=== PATIENT | female | born 1985 | race Caucasian/White ===

== ENCOUNTER → 2016-09-12 | Outpatient (CLI) | payer OTHER ==
[~2016-09-12] MED LIST: CLC100 PO; FOLI1TAB7 PO; INSHNI SQ; INSU100I SQ; LBT100; MTR600X PO; OXYC-57 PO; PRENTAB26 PO; insulin SQ
[2016-09-16 09:58] LABS: AFP CONCENTRATION 21.9 NG/ML; AFP MULTIPLE OF MEDIAN 0.88; AFPTS GESTATIONAL AGE 17.6 WEEKS; AFPTS INSULIN DEP DIABETIC? YES; AFPTS MATERNAL WT 327 LBS; ALPHA-FETOPROTEIN RACE CAUCASIAN=W; ESTRIOL MULTIPLE OF MEDIAN 0.66; HISTORY OF NTD NO; INHIBIN A 74 PG/ML; INHIBIN A MOM 0.58; REPEAT SAMPLE? NO; hCG MULTIPLE OF MEDIAN 1.27
== END | disposition home or self-care (01) ==
LOC: C.LAB1850 10:11 → MERGE 10:11
PROVIDERS: ATTEND Obstetrics & Gynecology
DX: O09.93 Supervision of high risk pregnancy, unspecified, third trimester (principal)

== ENCOUNTER → 2016-12-04 | Outpatient (CLI) | payer OTHER ==
[2016-12-04 10:42] LABS: HEMATOCRIT 30.3 % (37-47)
[2016-12-04 11:44] LABS: URINE APPEARANCE CLEAR (CLEAR); URINE BILIRUBIN NEG (NEG); URINE COLOR DK YELLOW; URINE EPITHELIAL CELL AUTO >30 /lpf (0-5); URINE NITRITE NEG (NEG); URINE SPECIFIC GRAVITY 1.023 (1.000-1.030); UROBILINOGEN NEG (NEG)
[2016-12-04 11:51] LABS: MANUAL MICROSCOPIC REQUIRED? NO; REVIEW REQ? NO
== END | disposition home or self-care (01) ==
LOC: MERGE 09:42 → C.LAB1850 09:42
PROVIDERS: ATTEND Obstetrics & Gynecology
DX: O24.410 Gestational diabetes mellitus in pregnancy, diet controlled (principal)

== ENCOUNTER → 2017-01-23 | Outpatient (CLI) | payer OTHER | END | disposition home or self-care (01) | LOC: C.LABSPEC 14:04 → MERGE 14:04 | PROVIDERS: ATTEND Obstetrics & Gynecology | DX: O24.414 Gestational diabetes mellitus in pregnancy, insulin controlled (principal); Z3A.00 Weeks of gestation of pregnancy not specified ==

== ENCOUNTER → 2017-02-07 | Outpatient (CLI) | payer OTHER ==
[2017-02-07 10:38] LABS: PATIENT HEIGHT 172.7 cm
[2017-02-07 12:34] LABS: HEMATOCRIT 33.3 % (37-47); MEAN CELL VOLUME 80.8 fL (80-100); MEAN CORPUSCULAR HEMOGLOBIN 26.2 pg (25-34); MEAN CORPUSCULAR HGB CONC 32.4 g/dl (32-36); MEAN PLATELET VOLUME 11.1 fL (7.4-10.4); PLATELET COUNT 159 K/uL (130-400); RED BLOOD COUNT 4.12 M/uL (4.2-5.4); WHITE BLOOD COUNT 11.36 K/uL (4.8-10.8)
[2017-02-07 13:01] LABS: ALKALINE PHOSPHATASE 116 U/L (45-117); ALT/SGPT 13 U/L (12-78); AST/SGOT 13 U/L (15-37); URIC ACID 4.5 mg/dl (2.6-7.2)
[2017-02-07 13:02] LABS: URINE TOTAL PROTEIN 15.8 mg/dl (0-11.9)
[2017-02-07 13:22] LABS: CREATININE 0.4 mg/dl (0.6-1.2); URINE TOTAL PROTEIN CALC 197.5 mg/24 hr (0-149.1)
== END | disposition home or self-care (01) ==
LOC: C.LAB 10:29
PROVIDERS: ATTEND Obstetrics & Gynecology
DX: O16.3 Unspecified maternal hypertension, third trimester (principal); Z3A.00 Weeks of gestation of pregnancy not specified

== ENCOUNTER 2017-02-13 06:50 | Inpatient (IN) | payer OTHER ==
[2017-02-12 10:53] VITALS: BMI 54.0
--- NOTE | 2017-02-12 11:22 | PAT Medication Instructions ---
Service Date Feb 12, 2017. Current Home Medication List Folic Acid (Folvite), 1 TAB PO QAM Insulin Human NPH (Humulin N), 15 UNITS SQ HS Insulin Lispro (Human) (Humalog), 15 UNITS SQ TIDM Labetalol HCl (Labetalol HCl), BID Multivit/Min/Iron/Fol Ac/Pren ( Vitamin), 1 TAB PO QAM Medication Instructions For Your Scheduled Surgery - Hold the following medications the morning of surgery: Multivit/Min/Iron/Fol Ac/Pren ( Vitamin), 1 TAB PO QAM Folic Acid (Folvite), 1 TAB PO QAM Insulin Lispro (Human) (Humalog), 15 UNITS SQ TIDM - Take the following medications the morning of surgery with a sip of water OTHERWISE NOTHING TO EAT OR DRINK AFTER MIDNIGHT: Labetalol HCl (Labetalol HCl), BID - Take the following medications as scheduled the night before surgery: Labetalol HCl (Labetalol HCl), BID Insulin Lispro (Human) (Humalog), 15 UNITS SQ TIDM Insulin Human NPH (Humulin N), 15 UNITS SQ HS If you have any questions please call us at [phone] or [phone] or [phone]
[2017-02-12 12:13] LABS: BASO % 0.1 %; BASO ABS # 0.01 K/uL (0-0.2); COMPLETE YES; EOS % 0.8 %; HEMATOCRIT 34.5 % (37-47); IG% 0.2 %; LYMPH % 17.8 %; LYMPH ABS # 2.17 K/uL (1.2-3.4); MEAN CELL VOLUME 80.4 fL (80-100); MEAN CORPUSCULAR HEMOGLOBIN 26.1 pg (25-34); MEAN CORPUSCULAR HGB CONC 32.5 g/dl (32-36); MONO % 5.3 %; NEUT % 75.8 %; PLATELET COUNT 152 K/uL (130-400); RED BLOOD COUNT 4.29 M/uL (4.2-5.4); WHITE BLOOD COUNT 12.19 K/uL (4.8-10.8)
[2017-02-12 12:38] LABS: BLOOD UREA NITROGEN 12 mg/dl (7-18); CALCIUM 8.6 mg/dl (8.5-10.1); CARBON DIOXIDE 25 mmol/L (21-32); CHLORIDE 106 mmol/L (98-107); CREATININE 0.47 mg/dl (0.60-1.20); GLUCOSE 78 mg/dl (70-99); POTASSIUM 4.3 mmol/L (3.5-5.1); SODIUM 140 mmol/L (136-145)
--- NOTE | 2017-02-12 13:29 | HISTORY & PHYSICAL EXAMINATION ---
DATE OF ADMISSION: 02/13/2017 PRINCIPAL DIAGNOSES: Intrauterine at 39 weeks, prior section, hypertension during and insulin controlled gestational diabetes. PRINCIPAL PROCEDURE: Repeat low transverse cervical section and bilateral tubal ligation. HISTORY OF PRESENT ILLNESS: The patient is a 31-year-old 2, para 1-0-0-1 white female, EDC of 02/16/2017 who presents for repeat section. Prior section was done because of failure to progress following induction for hypertension and gestational diabetes. This has also been complicated by hypertension which has been well controlled on labetalol 100 mg b.i.d. She also has insulin controlled gestational diabetes and most recent scan shows KOKO of 9.27 which showed following because of her hypertension and her last growth scan shows abdominal circumference of 92 percentile, estimated weight of 82 percentile. NSTs have been reactive. The patient presents for repeat section and tubal ligation. She understands the risks of procedure, both the tubal and a , she is willing to proceed. PAST MEDICAL HISTORY: Significant for hypertension preceding and history of gestational diabetes in the past. PAST SURGICAL HISTORY: Remarkable for section in 2016 and her wisdom teeth removed. ALLERGIES: She has no known drug allergies. MEDICATIONS: Labetalol 100 mg b.i.d., insulin both Humulin and Humalog. SOCIAL HISTORY: She does not smoke or drink. FAMILY HISTORY: Noncontributory. OBSTETRICAL AND GYNECOLOGICAL HISTORY: Periods have been irregular in the past, she did conceive this time on Ortho-Novum control pill. She did have a Pap smear that was atypical cells of unknown significance, done in 2014. Pap smear done in 2016 was negative. No history of PID, VD or herpes. In 2016, delivery at 37 weeks with a viable female , 8 pounds 7 ounces by section because of failure to progress. She was induced because of just hypertension. No complications following that surgery. HISTORY: Blood type is AB positive. Antibody screen is negative. Hemoglobin at 28 weeks is 10.0, hematocrit 30.3. Rubella is immune. RPR is nonreactive. Hepatitis is negative. HIV is negative. Chlamydia and GC are not detected. Cystic fibrosis was declined. Anatomy scan required cardiac views, which was then found to be normal, on subsequent followup ultrasound. Group B strep is negative. Nonstress tests have been reactive. AFIs have been within normal limits. She did have a echo also at [facility] and that was within normal limits. PHYSICAL EXAMINATION: VITAL SIGNS: On exam today, blood pressure is 140/82. GENERAL: She is a well-developed, obese white female, in no apparent distress. LUNGS: Clear to auscultation. HEART: Regular rate and rhythm. No murmurs or gallops. ABDOMEN: Gravid, fundal height is measuring 40 cm. NST was performed which was reactive. PELVIC: Exam was declined. There is no hepatosplenomegaly or masses palpable. She has a well-healed low transverse skin incision. EXTREMITIES: 2+ pitting edema. ASSESSMENT: A 31-year-old 2, para 1 white female with a preconditioned hypertension on medication as well as insulin controlled gestational diabetes mellitus. She is now scheduled for repeat section. She understands the risks of procedure and also the risks of the tubal ligation including future risks for both ectopic and intrauterine pregnancies and she is willing to proceed. Please see the orders for further directions. SHANNON
[~2017-02-13] VITALS: Ht 172.7 cm; Wt 162.5 kg
[2017-02-13] VITALS (12 sets, daily range): BP systolic 122–155; BP diastolic 69–79; PULSE 86–104; TEMP 36.3–36.5; O2SAT 95–98; Ht 172.7 cm; Wt 162.5 kg
[~2017-02-13 06:50] MED LIST changes: +CEFAZOLIN IV 3,000 MG in DEXTROSE 5% 50ML IV SCH; +CITRIC ACID/SODIUM CITRATE 15 ML UDC PO SCH; -CLC100 PO; +LACTATED RINGER'S 1000ML 1,000 ML IV SCH; -MTR600X PO; -OXYC-57 PO; -insulin SQ
--- NOTE | 2017-02-13 07:19 | History & Physical Bridge Note ---
H&P Re-Evaluation Bridge Note: I have examined the patient, reviewed the History & Physical and in the interval since the performance of the History & Physical I have noted the following changes of clinical significance: No changes noted
[2017-02-13] MEDS ORDERED: LACTATED RINGER'S 1000ML 500 ML IV PRN (11:28)
[2017-02-13] MEDS ORDERED: NALOXONE HCL INJ 1 MG in SODIUM CHLORIDE 0.9% 1000ML 1,000 ML IV PRN (11:28)
[2017-02-13] MEDS ORDERED: NALOXONE HCL INJ 0.08 MG in SYRINGE 1.8 ML IV PRN (11:28)
[2017-02-13] MEDS ORDERED: SODIUM CHLORIDE 0.9% 1000ML 1,000 ML IV PRN (11:28)
[2017-02-13] MEDS ORDERED: NALOXONE HCL 0.4 MG/1 ML VIAL/CARP IV PRN (11:30)
[2017-02-13] MEDS ORDERED: NO NARCOTICS OR SEDATIVES SCH (11:30)
[2017-02-13] MEDS ORDERED: DiphenhydrAMINE HCL 50 MG/ML VIAL IV PRN (11:30)
[2017-02-13] MEDS ORDERED: EpHEDrine SULFATE INJ 50 MG/ML AMP IV PRN (11:30)
[2017-02-13] MEDS ORDERED: MoRPHine SULFATE PF 1 MG/ML 10 ML AMP/VIAL EPI PRN (11:30)
[2017-02-13] MEDS ORDERED: KETOROLAC TROMETHAMINE 30 MG/ML VIAL IV. PRN (11:30)
[2017-02-13] MEDS ORDERED: NALBUPHINE HCL INJ 10 MG/ML AMP IV PRN (11:30)
[2017-02-13] MEDS ORDERED: ONDANSETRON INJ 2 MG/ML 2 ML VIAL IV PRN (11:30)
[2017-02-13] MEDS ORDERED: MoRPHine SULFATE 2 MG/ML CARP IV PRN (11:30)
[2017-02-13] MEDS ORDERED: MoRPHine SULFATE PF 1 MG/ML 10 ML AMP/VIAL ONE (11:41)
[2017-02-13] MEDS ORDERED: PHENYLEPHRINE HCL INJ 10 MG/ML VIAL ONE (12:15)
[2017-02-13] MEDS ORDERED: OXYTOCIN INJ 10 UNITS/ML VIAL ONE ×5 (13:40→14:15)
[2017-02-13] MEDS ORDERED: KETOROLAC TROMETHAMINE 30 MG/ML VIAL ONE (13:52)
[2017-02-13] MEDS ORDERED: LACTATED RINGER'S 1000ML 1,000 ML IV SCH (14:06)
[2017-02-13] MEDS ORDERED: DC PCA PRN (14:15)
[2017-02-13] MEDS ORDERED: LANOLIN OINT EXT PRN ×2 (14:15)
[2017-02-13] MEDS ORDERED: DIPHTHERIA/TETANUS/PERTUSSIS 0.5 ML SYR/VIAL IM. ONE (14:15)
--- NOTE | 2017-02-13 14:25 | [facility] Operative Report ---
Operative Report Operative Date Feb 13, 2017. Pre-Operative Diagnosis Term - previous Caesarean Section with desire for sterilization Post-Operative Diagnosis previous , GDM, unwanted fertility Procedure(s) Performed repeat LTCS bilateral modified radha tubal ligation. Surgeon Dr. Minerva Couch Drywall Application Supervisor Surgeon(s) Dr. Sandra Najera Estimated Blood Loss 500 Findings gravid uterus bilateral tubes & ovaries. Fluids 1100 Specimens a. placenta- hold b. cord blood specimen c. portion left fallopian tube d. portion right fallopian tube Drains morris to straight drainage clear urine at end of case Anesthesia SAB Complication(s) None Disposition Recovery Room / PACU I attest to the content of the Intraoperative Record and any orders documented therein. Any exceptions are noted below.
--- NOTE | 2017-02-13 14:38 | Anesthesiology Progress Note ---
Anesthesia Post Op Note Date & Time Feb 13, 2017 at 14:38 Notes Mental Status: alert / awake / arousable, participated in evaluation Pt Amnestic to Procedure: Yes Nausea / Vomiting: adequately controlled Pain: adequately controlled Airway Patency, RR, SpO2: stable & adequate BP & HR: stable & adequate Hydration State: stable & adequate Anesthetic Complications: no major complications apparent
[2017-02-13] MEDS ORDERED: OXYTOCIN INJ 20 UNITS in LACTATED RINGER'S 1000ML 1,000 ML IV SCH (14:45)
--- NOTE | 2017-02-13 15:04 | OPERATIVE REPORT ---
DATE OF OPERATION: 02/13/2017 SURGEON: Minerva Mcdonald MD WATER FITNESS INSTRUCTOR: Sandra Najera MD PREOPERATIVE DIAGNOSES: Intrauterine at 39 weeks, prior section, chronic hypertension, and insulin controlled gestational diabetes. POSTOPERATIVE DIAGNOSES: Same plus delivery of a viable female infant at 10 pounds 2 ounces. PROCEDURE: Repeat low transverse cervical section and bilateral modified [place] tubal ligation. ESTIMATED BLOOD LOSS: 500 mL. ANESTHESIA: Subarachnoid block. HISTORY: The patient is a 31-year-old 2, para 1-0-0-1 white female, EDC of 02/16/2017, who presented for repeat section. Prior section was done because of failure to progress following induction for hypertension and gestational diabetes. This has also been complicated by the ongoing hypertension, but has been well controlled on labetalol 100 mg b.i.d. Her blood sugars have also been well controlled on the insulin during this . The patient is also desiring bilateral tubal ligation for undesired fertility and multiparity. She understands the risk of procedure including risks for future pregnancies, both ectopic and intrauterine and she is willing to proceed. GROSS FINDINGS: Uterus is gravid and consistent with a term in size. Bilateral ovaries and fallopian tubes are grossly normal. DESCRIPTION OF PROCEDURE: After the patient received adequate subarachnoid block, she was prepped and draped in the usual sterile fashion. A low transverse skin incision was made through her prior scar and carried to the fascia with the same scalpel. The fascial incision was then extended with Mae scissors and the edges grasped with Kat clamps. The rectus muscles were bluntly divided along the midline and the peritoneum was entered sharply with the Metzenbaum scissors, although there was not much of the bladder flap to develop and the bladder was well down below the lower uterine segment incision site. The lower uterine segment was also noted to be thin. This was entered with the scalpel and was extended transversely. Membranes were ruptured for clear fluid. The was delivered from the vertex presentation with moderate fundal pressure. Mouth and nasopharynx were suctioned upon delivery of the head. The rest of the delivered easily . There was vigorous crying and the was moving all 4 limbs. The cord was clamped and cut and the was handed off to Dr. Carvalho, who was in attendance as idea man. The placenta was then delivered manually and the uterus exteriorized and covered with a clean lap sponge. Some retained membranes were removed using ring forceps. Rest of the uterine cavity was free of any placental tissue or membranes. The uterus was then closed in 2 layers in a running locking imbricating fashion with 0 Monocryl. Hemostasis was noted to be excellent. Attention was then turned to the left fallopian tube. It was grasped on the mid portion with a Jurgen clamp. A knuckle of tube was then developed with a tie of 3-0 plain catgut followed by suture ligature of the same. The knuckle of tube was then removed and the ends of the remaining tube cauterized with the Bovie. The left fallopian tube was then identified and followed to its fimbriated end. It was grasped in the mid portion with a Jurgen clamp. A suture was put in through the mesosalpinx to secure it and the length of the tube was quite short. The knuckle of tube was then developed with a tie of 3-0 plain catgut. A second suture ligature of the same was placed to reinforce the 1st. The knuckle of tube was then removed and the remaining ends of the tubes were cauterized with the Bovie. After irrigating the posterior cul-de-sac, the uterus was placed gently back into the abdominal cavity. Some clot was removed from the anterior cul-de-sac and this was irrigated as well. The tubal sites were examined once more and continued to have excellent hemostasis as did the uterine incision. The rectus muscles were then brought together on the midline with a running stitch of 0 Monocryl. The fascia was closed in a running fashion with 0 Vicryl. The Guille's fascia was closed in a running fashion with 3-0 plain catgut after irrigating the adipose layer. The skin edges were reapproximated using a subcuticular stitch of 4-0 Vicryl. Urine was clear at the end of the case. Mother and were doing well after the delivery. I attest to the content of the Intraoperative Record and any orders documented therein. Any exceptions are noted below. SHANNON
[2017-02-13] MEDS: SIMETHICONE 80 MG CHEW PO SCH (19:51)
[2017-02-13] MEDS: DOCUSATE SODIUM 100 MG CAP PO SCH (19:52)
[2017-02-14] VITALS (10 sets, daily range): BP systolic 95–139; BP diastolic 59–83; PULSE 73–90; TEMP 36.5–36.8; O2SAT 20–99
[2017-02-14] MEDS ORDERED: KETOROLAC TROMETHAMINE 30 MG/ML VIAL IV. PRN (04:30)
[2017-02-14] MEDS ORDERED: DiphenhydrAMINE HCL 50 MG/ML VIAL IV PRN (04:30)
[2017-02-14] MEDS ORDERED: OXYCODONE/ACETAMINOPHEN 5-325 TAB PO PRN (04:30)
[2017-02-14] MEDS ORDERED: MEPERIDINE HCL 50 MG/ML CARP IV PRN ×2 (04:30)
[2017-02-14] MEDS ORDERED: DC INTRASPINAL MORPHINE ONE (04:30)
[2017-02-14] MEDS: IBUPROFEN 600 MG TAB PO PRN ×4 (04:47→21:04)
[2017-02-14] MEDS: OXYCODONE/ACETAMINOPHEN 5-325 TAB PO PRN ×4 (04:48→21:05)
--- NOTE | 2017-02-14 06:34 | Progress Note ---
Subjective Feb 14, 2017. Subjective conversation w/ patient, physical exam, lab review Ambulation: limited ambulation Voiding: morris catheter in place Passing Gas: No Diet Tolerance: Clear Liquids Lochia: Small Feeding Type: Bottle Feeding Pain: controlled with pain meds Objective Vital Signs Date Time Temp Pulse Resp B/P (MAP) Pulse Ox O2 Delivery O2 Flow Rate FiO2 02/14/17 04:30 97 20 02/14/17 04:30 36.6 90 20 138/83 (101) 98 Room Air 02/14/17 03:30 16 92 02/14/17 02:30 16 94 02/14/17 01:30 18 97 02/14/17 00:30 20 98 02/14/17 00:05 97 Room Air 02/13/17 23:30 18 97 02/13/17 22:30 16 95 02/13/17 21:30 16 95 02/13/17 20:30 16 95 02/13/17 19:45 36.3 104 20 136/79 (98) 96 Room Air 02/13/17 19:30 20 96 02/13/17 18:30 16 98 02/13/17 17:30 36.4 86 18 138/70 (92) 96 Room Air 02/13/17 17:30 18 98 02/13/17 16:30 36.5 97 18 151/71 (97) 97 Room Air 02/13/17 16:30 36.4 86 18 155/69 (97) 96 Room Air 02/13/17 16:30 18 97 02/13/17 16:00 36.4 94 20 145/77 (99) 96 Room Air 02/13/17 15:45 97 Room Air 02/13/17 15:45 97 Room Air 02/13/17 15:30 36.5 91 16 122/76 (91) 97 Room Air 02/13/17 15:30 16 97 02/13/17 15:05 36.4 93 16 136/62 99 Nasal Cannula 2 02/13/17 14:55 36.4 83 16 135/57 98 Nasal Cannula 2 02/13/17 14:45 78 16 123/51 98 Nasal Cannula 2 02/13/17 14:35 82 16 120/50 98 Nasal Cannula 2 02/13/17 14:29 36.0 82 16 106/46 98 Nasal Cannula 2 Physical Exam General Appearance: WELL-APPEARING, WD/WN, NO APPARENT DISTRESS Respiratory/Chest: lungs clear, normal breath sounds Cardiovascular: regular rate, rhythm Abdomen: non tender, soft, + abnormal bowel sounds (decreased) Fundus: Firm, Tender (appropriate for surgery), Relation to Umbilicus (at u) Extremities: non-tender, normal inspection, + pedal edema (trace) Laboratory Results Last 24 Hours Test 02/13/17 14:39 02/14/17 06:00 Bedside Glucose 90 mg/dl Assessment and Plan Post-, Post-Op Day#: 1 Continue Routine Care: Routine care. morris out and void, encourage ambulation, adat.
[2017-02-14 07:11] LABS: BASO % 0.1 %; BASO ABS # 0.01 K/uL (0-0.2); COMPLETE YES; EOS % 0.9 %; HEMATOCRIT 31.1 % (37-47); IG% 0.1 %; LYMPH % 17.2 %; LYMPH ABS # 1.73 K/uL (1.2-3.4); MEAN CELL VOLUME 81.6 fL (80-100); MEAN CORPUSCULAR HEMOGLOBIN 25.7 pg (25-34); MEAN CORPUSCULAR HGB CONC 31.5 g/dl (32-36); MEAN PLATELET VOLUME 11.1 fL (7.4-10.4); MONO % 7.8 %; NEUT % 73.9 %; PLATELET COUNT 129 K/uL (130-400); RED BLOOD COUNT 3.81 M/uL (4.2-5.4); WHITE BLOOD COUNT 10.03 K/uL (4.8-10.8)
[2017-02-14] MEDS: PRENATAL VITAMIN TAB PO SCH (08:43)
[2017-02-14] MEDS: SIMETHICONE 80 MG CHEW PO SCH ×5 (08:43→19:31)
[2017-02-14] MEDS: DOCUSATE SODIUM 100 MG CAP PO SCH ×2 (08:43→19:31)
[2017-02-15] MEDS: IBUPROFEN 600 MG TAB PO PRN (06:21)
[2017-02-15] MEDS: OXYCODONE/ACETAMINOPHEN 5-325 TAB PO PRN (06:22)
[2017-02-15 06:23] LABS: HEMATOCRIT 29.6 % (37-47)
--- NOTE | 2017-02-15 07:16 | Progress Note ---
Subjective Feb 15, 2017. Subjective conversation w/ patient, physical exam Voiding: no voiding problems, morris catheter in place Passing Gas: Yes Diet Tolerance: Regular Diet Lochia: Small Feeding Type: Bottle Feeding Review of Systems Constitutional: No fever, No chills, No sweats, No weight loss, No weakness, No fatigue, No problem reported Breast: No see HPI, No breast lump, No change in shape, No nipple discharge, No breast pain, No problem reported Abdomen: No pain, No nausea, No vomiting, No diarrhea, No constipation, No GI bleeding, No problem reported Female : No see HPI, No dysuria, No urinary frequency, No hematuria, No incontinence, No abnormal vaginal bleeding, No vaginal discharge, No problem reported Objective Vital Signs Date Time Temp Pulse Resp B/P (MAP) Pulse Ox O2 Delivery O2 Flow Rate FiO2 02/14/17 23:05 99 Room Air 02/14/17 23:05 36.5 89 18 124/71 (88) 99 Room Air 02/14/17 15:30 Room Air 02/14/17 15:15 36.7 75 20 95/59 (71) Room Air 02/14/17 12:00 36.5 73 18 112/71 (85) 97 Room Air 02/14/17 07:30 96 Room Air 02/14/17 07:30 36.8 90 18 139/82 (101) 96 Room Air Physical Exam General Appearance: WELL-APPEARING, NO APPARENT DISTRESS Abdomen: soft Fundus: Firm, Non-Tender, Relation to Umbilicus (at U) Incision Description: Clean, Dry & Intact Extremities: no calf tenderness Laboratory Results Last 24 Hours Test 02/15/17 06:12 Hemoglobin 9.5 g/dL Hematocrit 29.6 % Assessment and Plan Post-, Post-Op Day#: 2 Continue Routine Care: stable post-op,course discharge to home rx's for motrin & percocet given to patient.
[2017-02-15 07:45] VITALS: BP 116/64; PULSE 90; TEMP 36.6; O2SAT 97
[2017-02-15] MEDS ORDERED: OXYC-57 PO (07:51)
[2017-02-15] MEDS ORDERED: CLC100 PO (07:51)
[2017-02-15] MEDS ORDERED: MTR600X PO (07:51)
--- NOTE | 2017-02-15 07:52 | Discharge Instructions ---
Discharge Instructions Date of Service Feb 15, 2017. Admission Reason for Admission: Prior Section, Desires Sterilization Discharge Discharge Diagnosis / Problem: recovery from section Discharge Goals Goal(s): Routine recovery after Activity Recommendations Activity Limitations: per Instructions/Follow-up section . Instructions / Follow-Up Instructions / Follow-Up ACTIVITY RECOMMENDATIONS: * Gradual return to full activity over the next 2-3 weeks. * No lifting - nothing heavier than baby over the next 2-3 weeks. * Do not engage in vigorous exercise, sexual activity or sports until cleared by your physician. * Do not drive or operate any motorized equipment until cleared by your physician. * You may shower/bathe daily. MEDICATIONS: For discomfort or pain, you may use Acetaminophen (Tylenol), Ibuprofen (Advil), or Naproxen (Aleve) following the package directions. For constipation you may use Colace following the package directions. BREAST CARE: If you are not breast feeding: * Wear a supportive bra 24 hours a day for one to two weeks. * Avoid stimulating your breasts and nipples as much as possible during the first few weeks after delivery. * When taking a shower, have the warm water hit your back, not breasts. * When your breasts feel full, apply ice packs. Usually three to four times a day helps ease the discomfort. * Take a mild pain medication (Tylenol / Motrin) when you are uncomfortable. If breast feeding: * Use breast milk to lubricate nipples. Lansinoh cream may be used for sore nipples. You do not need to remove cream prior to breast feeding. If using a different brand of cream, check the label for directions regarding removal of cream prior to nursing. * Wear a supportive bra. * If having problems with breasts or breast feeding, call a programmer analyst consultant or your health care provider. SPECIAL CARE INSTRUCTIONS: When you are discharged from the hospital, it is important for you to follow the instructions listed below: * During the first week at home, you should be able to care for yourself and your baby. In addition, the usual light household activities are encouraged. * Limit your activities to the way you feel. Do not try to clean the house or move furniture. Be sensible. * If you actively engage in sports and have done so up until the time of your delivery, you may resume these activities as soon as you feel able. This may take up to one month or even longer. Use good judgment. * Continue to take your vitamins for at least six weeks after the of your baby. * Your diet need not be limited unless you were on a special diet before your delivery. Breast-feeding mothers need around 2500 calories per day and at least 64-80 ounces of fluid per day (8 to 10 glasses). * You should eat foods from the four major food groups. Crash diets or fad diets are to be avoided. Eating lean meats, fresh fruits and vegetables, low-fat dairy products, high fiber foods and a regular exercise program, will help you get back to your pre- weight without putting your health at risk. * Constipation is sometimes a problem after delivery. Take a mild laxative as needed. If breast feeding, Milk of Magnesia is acceptable to use. You may use a suppository or Fleets enema. * A daily shower or tub bath is suggested. Wash incision daily with warm soapy water and pat dry. It doesn't need to be covered unless drainage is present. * A bloody vaginal discharge will usually continue until around four weeks . A small amount of bleeding may continue for as long as six weeks. Vaginal discharge changes from the bright red bleeding after delivery to pink then brownish and finally yellowish-pink before becoming white and disappearing. * Bleeding may increase with activity. Your first period may come in 4-8 weeks. If you are breast feeding, your period may be delayed even longer. * [place] (sex) can begin whenever both you and your partner feel comfortable and do not have any form of genital infection. It is recommended that you wait at least six weeks for internal and external healing to occur. If you have questions, please talk to your health care practitioner. A condom should be used to prevent infection and . * Foreplay, gentle intercourse and lubrication is very important the first several times to prevent pain. A water-based lubricant such as K-Y jelly or Astroglide may be used. * If you have RH negative blood and your baby is RH positive, you will receive RHOGAM by injection prior to discharge. The nurse will give you a card to keep with you that has the date and place that you received RHOGAM after delivery. * During your care, you had a Rubella screen done to check for the presence of rubella antibodies in your blood. If your test was negative, you will receive a Rubella vaccine prior to discharge. This vaccine may cause a fever, soreness at the injection site and flu-like symptoms. If these symptoms persist, notify your health care practitioner. is not advised for one month after a Rubella vaccine. * Verbalizes understanding of car seat law as reviewed with patient nursing. * Car Seat hand-out given and reviewed with patient by nursing. * Shaken baby information reviewed with patient by nursing. Call you doctor if: * Heavy bleeding (saturating several pads an hour) or passing clots the size of your fist. * A fever >101 degrees F (38.3 degrees C) on two occasions four hours apart and /or chills. * Unusual pain in the pelvic or vaginal areas. * Call the doctor for any increased redness, drainage or swelling around the incision and any pain unrelieved by prescribed pain medication. * "Baby Blues" lasting longer than two weeks. If you have any questions or concerns, call your health care practitioner at . FOLLOW UP VISIT: * Please call the office at to schedule a 6 week examination. It is important you keep this appointment. It is important for you to make arrangements for either yearly or twice yearly check-ups thereafter. Current Hospital Diet Patient's current hospital diet: Regular Diet Discharge Diet Recommended Diet: Regular OB Diet Procedures Procedures Performed: Repeat Low Transverse Caesarean Section with bilateral tubal ligation Pending Studies Studies pending at discharge: no Laboratory Results Hemoglobin A1c Test 01/08/17 12:18 Range/Units Estimated Average Glucose 117 mg/dl Hemoglobin A1c 5.7 H 4.5-5.6 % Medical Emergencies . Who to Call and When: Medical Emergencies: If at any time you feel your situation is an emergency, please call 911 immediately. . Non-Emergent Contact Non-Emergency issues call your: Retail Maintenance Technician . . "Provider Documentation" section prepared by Minerva Durand. . VTE Core Measure Inpt VTE Proph given/why not?: Treatment not indicated
[2017-02-15] MEDS: DOCUSATE SODIUM 100 MG CAP PO SCH (08:51)
[2017-02-15] MEDS: PRENATAL VITAMIN TAB PO SCH (08:51)
[2017-02-15] MEDS: SIMETHICONE 80 MG CHEW PO SCH (08:51)
[2017-02-15 10:18] VITALS: BP_DIAS 64; PULSE 90; TEMP 36.6
--- NOTE | 2017-02-15 19:11 | DISCHARGE SUMMARY ---
PRINCIPAL DIAGNOSES: Intrauterine at 39 weeks, prior section, chronic hypertension and insulin controlled gestational diabetes, undesired fertility and multiparity. PRINCIPAL PROCEDURE: Repeat low transverse cervical section and bilateral tubal ligation. HISTORY: The patient is a 31-year-old 2, para 1-0-0-1 white female, EDC of 02/16/2017, who presents for repeat section and bilateral tubal ligation. This was done without any complications. The patient had an uncomplicated postop course. She was eating regular diet on her 1st postop day. Pain well controlled with p.o. pain meds. She was ambulating and voiding without difficulty. She has remained afebrile throughout her hospital course. Hemoglobin on admission was 11.2, hematocrit of 34.5. First postop day hemoglobin 9.8, hematocrit of 31.1. Second postop day hemoglobin 9.5, hematocrit 29.6. She is being sent home with prescriptions for Percocet 1-2 tablets p.o. q. 4 hours p.r.n. pain, Motrin 600 mg p.o. q. 4 hours p.r.n. pain, to continue her vitamin daily as well as an iron tablet for the next 6 weeks. She is to call for a temperature of 101 degrees or higher, heavy vaginal bleeding, burning with urination, increased redness, drainage or pain in her incision, calf tenderness or any other concerns. She is to be seen in the office in 6 weeks for a followup visit.
[2017-02-16] MEDS ORDERED: FERROUS SULFATE 325 MG TAB PO SCH (08:00)
== END 2017-02-15 10:18 | disposition home or self-care (01) | DRG 765 ==
LOC: C.LD 06:50 → C.OBG 14:17 → MERGE 16:04 → EDSTATUS 16:26
PROVIDERS: ADMIT Obstetrics & Gynecology; ATTEND Obstetrics & Gynecology
PROC: 0UL70ZZ Occlusion of Bilateral Fallopian Tubes, Open Approach (ICD-10-PCS; principal; 2017-02-13 09:00)
PROC: 10D00Z1 Extraction of Products of Conception, Low, Open Approach (ICD-10-PCS; principal; 2017-02-13 09:00)
DX: O34.219 Maternal care for unspecified type scar from previous cesarean delivery (principal); O16.3 Unspecified maternal hypertension, third trimester; O24.414 Gestational diabetes mellitus in pregnancy, insulin controlled; Z30.2 Encounter for sterilization; Z3A.39 39 weeks gestation of pregnancy; Z37.0 Single live birth